=== PATIENT | female | born 1980 | race Two or more races ===

== ENCOUNTER 2019-03-11 01:59 | Emergency (ER) | payer SELFPAY ==
--- NOTE | 2019-03-11 02:30 | EDM.PDOC ---
ED HPI GENERAL MEDICAL PROBLEM - General Stated Complaint: RAPID HEART BEAT; Time Seen by Provider: 03/11/19 02:30 Source of Information: Reports: Patient History Limitations: Reports: Language Barrier - History of Present Illness INITIAL COMMENTS - FREE TEXT/NARRATIVE: Patient presented to the ED because of palpitations. She is under a lot of stress recently due to the of her sister and also she couldn't sleep. She denies any chest pain,dyspnea. - Related Data Allergies Allergy/AdvReac Type Severity Reaction Status Date / Time No Known Allergies Allergy Verified 07/19/13 12:40 Home Meds: Home Meds [id number]/Iron Fumarate/FA/DSS [ 19 Tablet] 1 tab PO DAILY 03/11/19 [ History] Past Medical History - Past Health History Medical/Surgical History: Denies Medical/Surgical History Social & Family History - Family History Family Medical History: Noncontributory ED ROS GENERAL - Review of Systems Review Of Systems: See Below Constitutional: Reports: No Symptoms HEENT: Reports: No Symptoms Respiratory: Reports: No Symptoms Cardiovascular: Reports: Palpitations. Denies: Chest Pain, Lightheadedness Endocrine: Reports: No Symptoms GI/Abdominal: Reports: No Symptoms Musculoskeletal: Reports: No Symptoms Skin: Reports: No Symptoms Neurological: Reports: No Symptoms Psychiatric: Reports: No Symptoms Hematologic/Lymphatic: Reports: No Symptoms Immunologic: Reports: No Symptoms ED EXAM, GENERAL - Physical Exam Exam: See Below Exam Limited By: No Limitations General Appearance: Alert, WD/WN, No Apparent Distress Ears: Normal External Exam, Normal Canal, Hearing Grossly Normal, Normal TMs Nose: Normal Inspection, Normal Mucosa, No Blood Throat/Mouth: Normal Inspection, Normal Lips, Normal Teeth, Normal Gums, Normal Oropharynx, Normal Voice, No Airway Compromise Head: Atraumatic, Normocephalic Neck: Normal Inspection, Supple, Non-Tender, Full Range of Motion Respiratory/Chest: No Respiratory Distress, Lungs Clear, Normal Breath Sounds Cardiovascular: Normal Peripheral Pulses, Regular Rate, Rhythm, No JVD, No Murmur, No Rub GI/Abdominal: Normal Bowel Sounds, Soft, No Organomegaly, No Distention, No Abnormal Bruit Course - Vital Signs Text/Narrative:: in the ER she is nSR with HR of 80's reassurance Last Recorded V/S: Last Vital Signs Temp 36.8 C 03/11/19 02:26 Pulse 94 03/11/19 02:26 Resp 16 03/11/19 02:26 BP 112/60 03/11/19 02:26 Pulse Ox 100 03/11/19 02:26 Departure - Departure Time of Disposition: 02:30 Disposition: Home, Self-Care 01 Condition: Good Clinical Impression: Situational anxiety - Discharge Information Instructions: Supporting Someone With Anxiety Referrals: PCP,None [Primary Care Provider] - Forms: ED Department Discharge Additional Instructions: please read discharge instructions on situational anxiety don't worry too much because your EKG is normal, there is nothing wrong with your heart stress can cause palpitations,insomnia etc follow up as needed
== END 2019-03-11 02:40 | disposition home or self-care (01) ==
LOC: FB.ED 01:59
DX: O99.342 Other mental disorders complicating pregnancy, second trimester (principal); F41.8 Other specified anxiety disorders; Z3A.17 17 weeks gestation of pregnancy
CPT/HCPCS: 93005; 93010; 99283; 99284-25